=== PATIENT | male | born 1965 | race Caucasian/White ===

== ENCOUNTER 2021-04-30 17:39 | Emergency (ER) | payer OTHER, SELFPAY ==
[2021-04-30 18:25] VITALS: BP 114/73; PULSE 75; RESP 18; TEMP 36.9; O2SAT 98
--- NOTE | 2021-04-30 18:39 | ECG_ITS ---
Measurements Intervals [place] Rate: 68 P: 58 HI: 169 QRS: 67 QRSD: 96 T: 62 QT: 395 QTc: 423 Interpretive Statements SINUS RHYTHM DELAYED PRECORDIAL R/S TRANSITION BORDERLINE ECG Electronically Signed On 04-30-2021 19:18:19 RN INTEGRATED by Kendall Turcios D.O.
--- NOTE | 2021-04-30 19:58 | ED.GENADULT ---
HPI - General Adult General Chief complaint: Unspecified Stated complaint: syncope,nausea,headache Source: patient and RN notes reviewed Limitations: no limitations History of Present Illness HPI narrative: The right handed patient, previously mostly healthy only on daily baby aspirin, presents with headache and near syncope. Patient states he was in a stressful social situation at work, when he developed onset of true vertigo with the vision starting to tilt. This was associated with quick onset of right frontal parietal headache. Patient had tunnel vision after the vertigo which resolved in under a minute but was associated with persistent headache-which did resolve until his arrival. 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 Related Data Home Medications Medication Instructions Recorded Confirmed aspirin [Aspir-81] 81 mg PO DAILY 04/30/21 04/30/21 Allergies Allergy/AdvReac Type Severity Reaction Status Date / Time Sulfa (Sulfonamide Allergy Verified 04/30/21 18:36 Antibiotics) Review of Systems Review of Systems: General/Constitutional: No weight loss,fever Eyes: N0: Redness,discharge Ears/Nose/Throat: No: Epistaxis,ear discharge Respiratory: Denies: Hemoptysis Gastrointestinal: No Vomiting, Bleeding-rectal Skin: No Lumps, eruption Neurologic: No Focal Weakness,Sz Hematologic: Denies: Petechiae/Purpura Psychiatric: No: Suicida ideationl All Other Systems: Reviewed and Negative [facility] Comments At time of signature, agree with nursing past medical, surgical, social and family history. There is no relevant family history pertinent to the presenting complaint Exam Narrative: General Appearance: Well appearing, No distress NIHSS equals 0 EYE: PERRLA, EOMI Conjunctiva clear Neurological: A&O x3, CN II-X intact; normal FTN and gait, reflexes symmetric Musculoskeletal: 5/5 strength symmetrically, full ROM Ears: External ear normal Nose: Normal nose Mouth/Throat: Normal appearing, Normal lips Neck: Supple Respiratory: Airway patent, No respiratory distress Cardiovascular: RRR Abdomen: Soft, Non-tender, No massess, No organomegaly (no rebound/ surgical signs), Hyperactive bowel sounds Skin: Warm, Dry Psychiatric: Normal mood, Normal affect Course Course Emergency Course: EKG: Normal sinus rhythm, normal axis 60, no ST-T changes, QTC 42 Vital Signs Vital signs: Vital Signs Temperature 98.5 F 04/30/21 18:25 Pulse Rate 75 04/30/21 18:25 Respiratory Rate 18 04/30/21 18:25 Blood Pressure 114/73 04/30/21 18:25 Pulse Oximetry 98 04/30/21 18:25 Temperature 98.5 F 04/30/21 18:25 Pulse Rate 75 04/30/21 18:25 Respiratory Rate 18 04/30/21 18:25 Blood Pressure 114/73 04/30/21 18:25 Pulse Oximetry 98 04/30/21 18:25 Medical Decision Making Vital Signs Vital Signs: Vital Signs Temperature 98.5 F 04/30/21 18:25 Pulse Rate 75 04/30/21 18:25 Respiratory Rate 18 04/30/21 18:25 Blood Pressure 114/73 04/30/21 18:25 Pulse Oximetry 98 04/30/21 18:25 Temperature 98.5 F 04/30/21 18:25 Pulse Rate 75 04/30/21 18:25 Respiratory Rate 18 04/30/21 18:25 Blood Pressure 114/73 04/30/21 18:25 Pulse Oximetry 98 04/30/21 18:25 Lab Data Labs: Lab Results 04/30/21 Range/Units 18:43 POC Capillary Glucose 109 H (65-105) mg/dl Discharge Plan Discharge Prescriptions: No Action aspirin [Aspir-81] 81 mg Tablet,Delayed Release (Dr/Ec) 81 mg PO DAILY RF: 0
[2021-04-30 20:04] LABS: Glucose Point of Care 109 mg/dl (65-105)
== END 2021-04-30 19:15 | disposition short-term general hospital (02) ==
LOC: EXPTROY 18:16
PROVIDERS: Emergency Provider Emergency Medicine
DX: R51.9 Headache, unspecified (principal); E78.00 Pure hypercholesterolemia, unspecified
CPT/HCPCS: 82948; 93005; 99202; G0463

== ENCOUNTER 2021-04-30 19:34 | Emergency (ER) | payer OTHER, SELFPAY ==
--- NOTE | ~2021-04-30 | CT_ITS ---
EXAMINATION: CTA brain carotid EXAM DATE: 05/01/2021 03:59 INDICATION: Headache nausea . Recent episodes of blurred vision. TECHNIQUE: Noncontrast head CT. Spiral CTA of the carotid arteries was performed with intravenous i njection 100 cc of Omnipaque 350. Axial, coronal, sagittal reformatted images reviewed. Additional r eformatted images created on dedicated 3-D workstation. NASCET comparable standard used to assess th e degree of arterial stenosis. Spiral CT angiogram cerebral arteries performed with the same intrave nous injection of contrast. Source images of the brain CTA transferred to dedicated workstation for 3 -D rotational image creation. Coronal, sagittal maximum intensity pixel images also reviewed. The d ose-length product (DLP) for this examination was 1951.41 mGy-cm. The exposure was tailored accordi ng to patient size, and iterative reconstruction (ASIR) was used as additional dose reduction techniq ue. There is no prior study for comparison. FINDINGS: Minimal right carotid bulb arterial sclerosis, 0% stenosis bilaterally. Carotid siphons are unremarkable. Left vertebral artery is dominant. There is no carotid or vertebral basilar arterial dissection or fibromuscular dysplasia. There are no cerebral artery aneurysms. There is symmetric cer ebral artery arborization. The sagittal, transverse and sigmoid sinuses enhance normally, no venous s inus thrombosis. Internal cerebral veins also enhance normally. There is no acute intraparenchymal hemorrhage. No evidence of intraparenchymal brain mass lesion. N o evidence of acute infarction. There is no mass effect or midline shift. There is no obstructive hyd rocephalus suspected. There are no extra-axial collections. Incidental Findings: Lower cervical disc disease with C5-6 neural foramen most narrowed on exam. IMPRESSION: 1. No acute carotid or intracranial findings. 2. Bilateral carotid bulb 0% stenosis. Reviewed, dictated and finalized at location D. [employer]
[2021-04-30 19:38] VITALS: BP 142/79; PULSE 79; RESP 20; TEMP 36.9; O2SAT 100
[2021-04-30 21:55] VITALS: BP 117/66; PULSE 71; RESP 16; TEMP 36.6; O2SAT 99
[2021-05-01] MEDS: diphenhydrAMINE HCl INJ 50 MG/ML VIAL IV PUSH (02:44)
[2021-05-01] MEDS: SODIUM CHLORIDE 0.9% IV 1,000 ML 999 ML IV CONT (02:44)
[2021-05-01] MEDS: PROCHLORPERAZINE EDISYLATE 10 MG/2 ML VIAL IV PUSH (02:44)
--- NOTE | 2021-05-01 03:15 | ED.GENADULT ---
HPI - General Adult General Chief complaint: Dizziness Stated complaint: Sent from [facility] Care,Vision changes,KNIGHT/Nausea Time Seen by Provider: 05/01/21 02:19 History of Present Illness HPI narrative: Patient 55-year-old gentleman who presents emerged from with chief complaint of dizziness. The patient reports that earlier today he had an episode where suddenly his head got foggy and felt as though his vision was closing in on him. Patient states that afterwards he developed a headache in the left frontal area of his head the patient states he was seen in urgent care and was recommended to come to the emergency department for evaluation of the pain reports he started to feel little better at this time denies focal neurological deficit Related Data Home Medications Medication Instructions Recorded Confirmed aspirin [Aspir-81] 81 mg PO DAILY 04/30/21 04/30/21 Allergies Allergy/AdvReac Type Severity Reaction Status Date / Time Sulfa (Sulfonamide Allergy Verified 04/30/21 18:36 Antibiotics) Review of Systems Review of Systems: A 10 system review of systems was completed on the patient and is negative except for what is stated in the HPI. Nursing and ancillary documentation was reviewed. Exam Narrative: GENERAL: Well-appearing, well-nourished, and in no acute distress. HEAD: Normocephalic, atraumatic. EYES: PERRLA and EOMI. ENT: Nares clear, no rhinorrhea or epistaxis. Mucous membranes moist. NECK: Supple. CHEST: Clear to auscultation. No respiratory distress. HEART: Regular rate and rhythm. No murmur heard. Normal peripheral pulses. ABDOMEN: Soft, nontender, nondistended, normal active bowel sounds. EXTREMITIES: Normal range of motion. No edema. SKIN: Warm, dry, no rash. NEURO: No focal deficits. Alert and oriented x3. PSYCH: Normal mood and affect. Course Vital Signs Vital signs: Vital Signs Temperature 36.9 C 04/30/21 19:38 Pulse Rate 79 04/30/21 19:38 Respiratory Rate 20 04/30/21 19:38 Blood Pressure 142/79 H 04/30/21 19:38 Pulse Oximetry 100 04/30/21 19:38 Temperature 36.6 C 04/30/21 21:55 Pulse Rate 71 04/30/21 21:55 Respiratory Rate 16 04/30/21 21:55 Blood Pressure 117/66 04/30/21 21:55 Pulse Oximetry 99 12/02/21 21:55 Medical Decision Making Vital Signs Vital Signs: Vital Signs Temperature 36.9 C 04/30/21 19:38 Pulse Rate 79 04/30/21 19:38 Respiratory Rate 20 04/30/21 19:38 Blood Pressure 142/79 H 04/30/21 19:38 Pulse Oximetry 100 04/30/21 19:38 Temperature 36.6 C 04/30/21 21:55 Pulse Rate 71 04/30/21 21:55 Respiratory Rate 16 04/30/21 21:55 Blood Pressure 117/66 04/30/21 21:55 Pulse Oximetry 99 04/30/21 21:55 Lab Data Result diagrams: 05/01/21 02:51 05/01/21 02:51 Labs: Lab Results 05/01/21 05/01/21 Range/Units 02:51 02:51 WBC 7.8 (4.5-10.0) K/mm3 RBC 4.81 (4.6-6.20) M/mm3 Hgb 15.7 (14.0-18.0) g/dL Hct 46.0 (42.0-52.0) % MCV 95.6 (80-100) fl MCH 32.6 (26-34) pg MCHC 34.1 (32-36) g/dl RDW 12.1 (11.5-14.5) % Plt Count 299 (150-375) k/mm3 MPV 8.5 (7.4-10.4) fl Immature Gran % (Auto) 0.3 (0-0.5) % Neut % (Auto) 39.5 L (45.5-73.1) % Lymph % (Auto) 47.2 H (18.3-44.2) % [place] % (Auto) 9.9 H (2.6-8.5) % Eos % (Auto) 2.3 (0-4.4) % Baso % (Auto) 0.8 (0.2-1.2) % Lymph # (Auto) 3.70 H (0.9-3.2) K/mm3 [place] # (Auto) 0.8 H (0.1-0.6) K/mm3 Eos # (Auto) 0.2 (0-0.3) K/mm3 Baso # (Auto) 0.1 (0.0-0.1) K/mm3 Abs Immat Gran (auto) 0.02 (0.00-0.031) K/mm3 Absolute Neuts (auto) 3.1 (1.3-6.7) K/mm3 Absolute Nucleated RBC 0.0 (0.0-0.012) K/mm3 Nucleated RBC % 0.0 (0.0-0.2) % Sodium 139 (137-145) mmol/L Potassium 3.8 (3.4-5.0) mmol/L Chloride 103 (98-107) mmol/L Carbon Dioxide 25 (22-30) mmol/L Anion Gap 11 (8-16) mmol/L BUN 16 (9-20) mg/dL Creatinine 0.80 (0.7-1.3)
[2021-05-01 03:32] LABS: Basophils Absolute Auto 0.1 K/mm3 (0.0-0.1); Basophils Percent Auto 0.8 % (0.2-1.2); Eosinophils Absolute Auto 0.2 K/mm3 (0-0.3); Eosinophils Percent Auto 2.3 % (0-4.4); Hemoglobin 15.7 g/dL (14.0-18.0); Immature Granulocyte Absolute 0.02 K/mm3 (0.00-0.031); Immature Granulocyte Percent A 0.3 % (0-0.5); Lymphocytes Percent Auto 47.2 % (18.3-44.2); Mean Corpuscular HGB Conc 34.1 g/dl (32-36); Mean Corpuscular Hemoglobin 32.6 pg (26-34); Mean Corpuscular Volume 95.6 fl (80-100); Mean Platelet Volume 8.5 fl (7.4-10.4); Monocytes Absolute Auto 0.8 K/mm3 (0.1-0.6); Monocytes Percent Auto 9.9 % (2.6-8.5); Neutrophils Absolute Auto 3.1 K/mm3 (1.3-6.7); Neutrophils Percent Auto 39.5 % (45.5-73.1); Platelet Count Result 299 k/mm3 (150-375); Red Blood Count 4.81 M/mm3 (4.6-6.20); Red Cell Distribution Width 12.1 % (11.5-14.5); White Blood Count 7.8 K/mm3 (4.5-10.0)
[2021-05-01 03:45] LABS: Alanine Aminotransferase 16 U/L (4-50); Albumin Level 4.5 g/dL (3.5-5.1); Alkaline Phosphatase 77 U/L (38-126); Anion Gap 11 mmol/L (8-16); Aspartate Amino Transferase 22 U/L (17-59); Bilirubin,Total 0.6 mg/dL (0.2-1.3); Blood Urea Nitrogen 16 mg/dL (9-20); Calcium 9.3 mg/dL (8.4-10.2); Carbon Dioxide 25 mmol/L (22-30); Chloride 103 mmol/L (98-107); Estimated CRCL calculation 102 ml/min; Estimated Glomerular Filt Rate > 60; Glucose 103 mg/dL (65-110); Potassium 3.8 mmol/L (3.4-5.0); Sodium 139 mmol/L (137-145)
[2021-05-01 07:50] VITALS: BP 131/78; PULSE 64; RESP 16; O2SAT 99
== END 2021-05-01 07:30 | disposition home or self-care (01) ==
PROVIDERS: Emergency Provider Emergency Medicine
DX: R51.9 Headache, unspecified (principal)
CPT/HCPCS: 36415; 70496; 70498; 80053; 85025; 96361; 96374; 96375; 99284; J0780; J1200; J7030; Q9967

== ENCOUNTER 2022-09-01 15:21 | Emergency (ER) | payer OTHER, SELFPAY ==
--- NOTE | ~2022-09-01 | XR_ITS ---
EXAMINATION: XR chest 2V Exam Date/Time: 09/01/2022 15:55 CDT HISTORY: cough x 10 days Comparison: None available. RESULT: Lines, tubes, and devices: None. Lungs and pleura: Clear. Cardiomediastinal silhouette: Unremarkable. Other: No acute osseous or upper abdominal finding. IMPRESSION: No acute cardiopulmonary process. Reviewed, dictated and finalized at location K.
[2022-09-01 15:30] VITALS: BP 135/92; PULSE 102; RESP 20; TEMP 36.3; O2SAT 99
--- NOTE | 2022-09-01 15:38 | ED.URI ---
HPI - URI/Sore Throat General Chief Complaint: Upper Respiratory Infection Stated Complaint: cold symptoms,congestion Time Seen by Provider: 09/01/22 15:38 Source: patient and RN notes reviewed Mode of arrival: ambulatory Limitations: no limitations History of Present Illness HPI Narrative: 56-year-old male presented for complaint of cough for over 1 week, with associated sinus congestion and drainage. Endorses shortness of breath with heavy exertion. States cough is productive of thick sputum. Denies wheezing, chest pain, palpitations, body aches, nausea, vomiting, diarrhea, fevers or chills. Has taken Sudafed, Mucinex, and NyQuil for symptoms. Endorses sick contacts with family members. Patient smokes 1 pack per day. 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 Endorses abrasion to the left elbow in the left knee. Denies hitting his head or loss of consciousness. MD elicited complaint: cough Related Data Home Medications Medication Instructions Recorded Confirmed aspirin 81 mg tablet,delayed 81 mg PO DAILY 04/30/21 09/01/22 release Allergies Allergy/AdvReac Type Severity Reaction Status Date / Time Sulfa (Sulfonamide Allergy Unknown Verified 09/01/22 15:42 Antibiotics) Review of Systems Review of Systems: CONSTITUTIONAL: Denies malaise, chills, sweats, fever EYES: Denies visual changes, redness, or discharge ENT: Reports rhinorrhea, congestion, denies sinus pain, otalgia, sore throat CARDIOVASCULAR: Denies chest pain, palpitations, edema RESPIRATORY: Reports cough, post nasal drainage, SOB with exertion GASTROINTESTINAL: Denies abdominal pain, nausea, vomiting, diarrhea SKIN: Denies rash or itching MUSCULOSKELETAL: Denies myalgia NEUROLOGIC: Denies headache [facility] Past Medical History Medical History (Updated 09/01/22 @ 17:06 by Radha Mon, NICK) No pertinent past medical history Exam Narrative: GENERAL: Mildly ill-appearing, nontoxic no acute distress. HEAD: Normocephalic EYES: PERRLA, conjunctivae clear ENT: Mucous membranes moist. TM mildly erythematous with dull light reflex bilaterally; no tragal tenderness. Oropharynx without erythema, lesions or exudate NECK: Supple. No lymphadenopathy CHEST: Exp wheezing to bases. 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 No respiratory distress, speaks in full sentences. HEART: Regular rate and rhythm. No murmur heard. SKIN: Warm, dry, Left elbow with scabbed abrasion, left knee with mild superficial abrasion NEURO: Alert and oriented x3. PSYCH: Normal mood and affect Course Course Emergency Course: Patient is aware of diagnosis, understands and agrees to treatment plan. Anticipatory guidance given. Patient agrees to follow-up as directed and is aware of reasons to seek care at the emergency department. Portions of this record may have been created with voice recognition software Level of Care: Express Care Visit Vital Signs Vital signs: Vital Signs Temperature 97.4 F L 09/01/22 15:30 Pulse Rate 102 H 09/01/22 15:30 Respiratory Rate 20 09/01/22 15:30 Blood Pressure 135/92 H 09/01/22 15:30 Pulse Oximetry 99 09/01/22 15:30 Oxygen Delivery Room Air 09/01/22 15:30 Temperature 97.4 F L 09/01/22 15:30 Pulse Rate 102 H 09/01/22 15:30 Respiratory Rate 20 09/01/22 15:30 Blood Pressure 135/92 H 09/01/22 15:30 Pulse Oximetry 99 09/01/22 15:30 Oxygen Delivery Room Air 09/01/22 15:30 reviewed MDM - URI/Sore Throat MDM Narrative Medical decision making narrative: Abrasions to left elbow and knee cleansed, bandaid applied with PAULA. CXR result reviewed with pt. Discussed Rx's with pt. Advised supportive measures and signs/symptoms to go to the ER. Pt is appropriate for outpt treatment and f/u. Differential Diagnosis Differential diagnosis: Likely upper respiratory infection, sinusitis and viral infection Imaging Data Radiologist's impression: Patient: Parminder Maya : 1965 MR#: [id number]
== END 2022-09-01 16:38 | disposition home or self-care (01) ==
PROVIDERS: Emergency Provider Nurse Practitioner Family
DX: J40 Bronchitis, not specified as acute or chronic (principal); S50.312A Abrasion of left elbow, initial encounter; W01.0XXA Fall on same level from slipping, tripping and stumbling without subsequent striking against object, initial encounter
CPT/HCPCS: 71046; 99213; G0463

== ENCOUNTER 2023-02-07 08:26 | Emergency (ER) | payer OTHER, SELFPAY ==
--- NOTE | ~2023-02-07 | XR_ITS ---
EXAMINATION: XR chest 2V 02/07/2023 09:07 INDICATION: Cough. PROCEDURE: 2 view chest COMPARISON: 09/01/2022 FINDINGS: The lungs are clear. The cardiomediastinal silhouette is within normal limits. There are no pleural effusions. There is no pneumothorax suspected. IMPRESSION: 1: NO ACUTE CARDIOPULMONARY DISEASE. Reviewed, dictated and finalized at location B.
[2023-02-07 08:36] VITALS: BP 133/83; PULSE 86; RESP 16; TEMP 36.3; O2SAT 98
--- NOTE | 2023-02-07 08:44 | ED.URI ---
HPI - URI/Sore Throat General Chief Complaint: Upper Respiratory Infection Stated Complaint: cold symptoms Time Seen by Provider: 02/07/23 08:45 Source: patient, RN notes reviewed and old records reviewed Mode of arrival: ambulatory Limitations: no limitations History of Present Illness HPI Narrative: 57-year-old male presents to the [facility] with complaints of cough, congestion, sinus congestion, runny nose for over week. Has been doing DayQuil and NyQuil. States the cough has been keeping him up at night. Denies chest pain or shortness of breath. Denies abdominal pains. Denies fevers. Patient is a smoker Onset (ago): week(s) (1+) Treatments prior to arrival: cold medicine Related Data Home Medications Medication Instructions Recorded Confirmed aspirin 81 mg tablet,delayed 81 mg PO DAILY 04/30/21 02/07/23 release Allergies Allergy/AdvReac Type Severity Reaction Status Date / Time Sulfa (Sulfonamide Allergy Unknown Verified 02/07/23 08:53 Antibiotics) Review of Systems Review of Systems: All systems reviewed & are unremarkable except as noted in HPI and below Constitutional: Constitutional: Reports no additional constitutional complaints Eyes: Eyes: Reports no additional eye complaints ENT: Reports as per HPI, Reports nasal discharge and Reports sinus pressure Cardiovascular: Cardiovascular: Reports no additional cardiovascular complaints, Denies chest pain and Denies dyspnea Respiratory: Respiratory: Reports as per HPI, Reports chest congestion, Reports cough and Denies dyspnea Gastrointestinal: Gastrointestinal: Reports no additional gastrointestinal complaints, Denies abdominal pain, Denies nausea and Denies vomiting Musculoskeletal: Musculoskeletal: Reports no additional musculoskeletal complaints Integumentary/Breasts: Skin/Breast: Reports system reviewed and no additional complaints, except as docu Neurologic: Reports system reviewed and no additional complaints, except as documented Psychiatric: Psychiatric: Reports no additional psychiatric complaints Allergic/Immunologic: Allergic/Immunologic: Reports no additional allergic/immunologic complaints [facility] Past Medical History Medical History No pertinent past medical history Social History Social History (Updated 02/07/23 @ 08:55 by Medina Thakkar APRN) Smoking status: Current every day smoker Tobacco type: cigarettes Gender identity (if verbalized by the patient): Male Comments At the time of my signature, I reviewed and agree with the nursing past medical, surgical, social, and family history. There is no relevant family history pertinent to the patient complaint. Exam Const: General: cooperative, healthy appearing, comfortable, no acute distress, well developed, alert and well nourished Nutritional Appearance: well nourished and obese Orientation/consciousness: patient oriented x3 Limitations: no limitations HENMT: Head: normal to inspection Ears: hearing grossly normal bilaterally, external ears normal, EAC's normal, mastoids normal and TM abnormal wth effusion serous bilateral Face/Nose/Sinus: Normal external nose present, Normal nares present, Normal nasal mucous membranes and turbinates present, normal facial exam and face symmetric Face and sinus: normal facial exam and face symmetric Mouth: Yes Normal oral and palatal mucosa present, Yes lip normal and Yes moist mucous membranes Throat: posterior oropharynx normal and uvula midline Eyes: General: appearance normal, both eyes and all related structures Alignment and Position: alignment normal Periorbital: periorbital findings normal Pupils: Equal, round and reactive pupils present EOM: EOMs intact bilaterally Neck: Neck: normal visual inspection, full ROM, no lymphadenopathy and no meningeal signs Chest: Chest palpation & inspection: normal inspection of the chest Resp: Effort & Inspection: normal
== END 2023-02-07 09:41 | disposition home or self-care (01) ==
PROVIDERS: Emergency Provider Nurse Practitioner
DX: J40 Bronchitis, not specified as acute or chronic (principal); F17.210 Nicotine dependence, cigarettes, uncomplicated
CPT/HCPCS: 71046; 99213; G0463